=== PATIENT | female | born 1985 | race Caucasian/White ===

== ENCOUNTER 2018-03-05 21:52 | Emergency (ER) | payer SELFPAY ==
[2018-03-05 22:22] VITALS: BP 118/58; PULSE 73; RESP 20; TEMP 99.3; O2SAT 99
[2018-03-05 22:46] LABS: SQUAMOUS EPITHIAL 2 /hpf (0-5); URINE BILIRUBIN NEGATIVE (NEGATIVE); URINE BLOOD NEGATIVE (NEGATIVE); URINE CLARITY Clear (Clear); URINE COLOR Yellow (YELLOW); URINE GLUCOSE (UA) NORMAL (Normal); URINE LEUKOCYTE ESTERASE TRACE Leu/uL (Negative); URINE PROTEIN NEGATIVE (NEGATIVE); URINE UROBILINOGEN NORMAL mg/dL (0.2-1.0)
--- NOTE | 2018-03-05 22:58 | C.PDOC ---
Time Seen by Provider: 03/05/18 22:25 Chief Complaint (Nursing): Hip Pain Past Medical History Vital Signs: Last Vital Signs Temp 99.3 F 03/05/18 22:09 Pulse 73 03/05/18 22:09 Resp 20 03/05/18 22:09 BP 118/58 L 03/05/18 22:09 Pulse Ox 99 03/05/18 22:09 - Social History Hx Alcohol Use: No Hx Substance Use: No - Immunization History Hx Tetanus Toxoid Vaccination: No Hx Influenza Vaccination: No Hx Pneumococcal Vaccination: No ED Course And Treatment O2 Sat by Pulse Oximetry: 99 Disposition - Disposition
--- NOTE | 2018-03-05 23:01 | C.PDOC ---
History Of Present Illness 33 year old female complains of pelvic pain described as pressure and "stabbing labor" pains since yesterday. Today she reports having urinary frequency and urgency. She denies any fever, nausea, vomiting, flank pain, vaginal bleeding or discharge. LMP 01/28/18 Time Seen by Provider: 03/05/18 22:25 Chief Complaint (Nursing): Hip Pain History Per: Patient History/Exam Limitations: no limitations Onset/Duration Of Symptoms: Days Current Symptoms Are (Timing): Still Present Quality Of Discomfort: Pressure, Stabbing (Labor) Associated Symptoms: Urinary Symptoms (Frequency, Urgency). denies: Fever, Nausea, Vomiting, Back Pain (Flank) Alleviating Factors: None Recent travel outside of the [place]: No Abnormal Vaginal Bleeding: No Past Medical History Reviewed: Historical Data, Nursing Documentation, Vital Signs Vital Signs: Last Vital Signs Temp 99.3 F 03/05/18 22:09 Pulse 73 03/05/18 22:09 Resp 20 03/05/18 23:28 BP 118/58 L 03/05/18 22:09 Pulse Ox 99 03/05/18 23:16 Family History: States: Unknown Family Hx - Social History Hx Alcohol Use: No Hx Substance Use: No - Immunization History Hx Tetanus Toxoid Vaccination: No Hx Influenza Vaccination: No Hx Pneumococcal Vaccination: No Review Of Systems Constitutional: Negative for: Fever Gastrointestinal: Negative for: Nausea, Vomiting Genitourinary: Positive for: Frequency, Pelvic Pain, Other (Urgency). Negative for: Vaginal Discharge, Vaginal Bleeding Musculoskeletal: Negative for: Other (Flank pain) Physical Exam - Physical Exam Appears: Non-toxic Skin: Normal Color, Warm, Dry Head: Atraumatic, Normacephalic Eye(s): bilateral: Normal Inspection Oral Mucosa: Moist Neck: Normal, Supple Chest: Symmetrical, No Tenderness Cardiovascular: Rhythm Regular Respiratory: Normal Breath Sounds, No Rales, No Rhonchi, No Wheezing Gastrointestinal/Abdominal: Soft, Tenderness (Suprapubic), No Guarding, No Rebound Pelvic: Normal External Exam, Normal Speculum Exam, No Vaginal Bleeding, No Vaginal Discharge, No Cervical Motion Tenderness, No Cervix Open, No Enlarged Uterus Extremity: Bilateral: Atraumatic, Normal ROM Neurological/Psych: Oriented x3, Normal Speech ED Course And Treatment O2 Sat by Pulse Oximetry: 99 (Room air) Pulse Ox Interpretation: Normal Medical Decision Making Medical Decision Making: Impression: pelvic pain, urinary sx Plan: * UA * Tylenol * Pyridium Progress: POC test negative UA reviewed showing trace LE, no other abnormality. Pelvic exam performed, no CMT, no discharge. Will send urine culture and culture for GC. Patient remained well in no acute distress. Will discharge patient and contact with any positive results. Disposition Counseled Patient/Family Regarding: Studies Performed, Diagnosis, Need For Followup - Disposition [facility] Disposition: HOME/ ROUTINE Disposition Time: 23:09 Condition: GOOD Additional Instructions: Your urine results was negative Cultures were sent to lab and can take 2-3 days for results We will contact you if positive findings You can also call back at [phone] Take Tylenol or Advil for any pain Tus resultados de orina fueron negativos Las culturas fueron enviadas al laboratorio y pueden diane 2-3 gardner para obtener resultados Nos comunicaremos con usted si hay hallazgos positivos Tambin puede volver a llamar al [phone] [place] Tylenol o Advil por cualquier dolor Instructions: Acute Pelvic Pain (DC) Print Language: MALTESE - POA Present On Arrival: None - Clinical Impression Clinical Impression: Pelvic pain - PA / TEST GRADER / Resident Statement MD/DO has reviewed & agrees with the documentation as recorded. - Scribe Statement The provider has reviewed the documentation as recorded by the Scribe Richi Ford All medical record entries made by the Scribe were at my direction and personally dictated by me. I have reviewed the chart and agree that the record accurately reflects my personal performance of the history, physical exam, medical decision making, and the department course for this patient. I have also personally directed, reviewed, and agree with the discharge instructions and disposition.
== END 2018-03-05 23:28 | disposition home or self-care (01) ==
LOC: C.ER 21:52
DX: R10.2 Pelvic and perineal pain (principal)

== ENCOUNTER 2018-03-26 07:39 | Emergency (ER) | payer SELFPAY ==
[2018-03-26 07:48] VITALS: BP 108/73; PULSE 66; RESP 18; TEMP 97.6; O2SAT 98
[2018-03-26] MEDS ORDERED: Naproxen 550 mg Tab PO STA (07:56)
[2018-03-26] MEDS ORDERED: Naproxen 550 mg Tab PO ONE (08:04)
--- NOTE | 2018-03-26 08:21 | C.PDOC ---
History Of Present Illness 33-year-old female, presents to the emergency department with complaints of right neck pain radiating to right shoulder and arm for the past five days. Patient is taking Ibuprofen at home with no relief. Patient denies any trauma, nausea/vomiting, fever, chills, chest pain or shortness of breath. No other complaints at this time. Time Seen by Provider: 03/26/18 07:41 Chief Complaint (Nursing): Medical Clearance History Per: Patient History/Exam Limitations: no limitations Current Symptoms Are (Timing): Still Present Severity: Moderate Past Medical History Reviewed: Historical Data, Nursing Documentation, Vital Signs Vital Signs: Last Vital Signs Temp 97.6 F 03/26/18 07:44 Pulse 66 03/26/18 07:44 Resp 18 03/26/18 07:44 BP 108/73 03/26/18 07:44 Pulse Ox 98 03/26/18 08:22 Family History: States: No Known Family Hx - Social History Hx Alcohol Use: No Hx Substance Use: No - Immunization History Hx Tetanus Toxoid Vaccination: No Hx Influenza Vaccination: No Hx Pneumococcal Vaccination: No Review Of Systems Constitutional: Negative for: Fever, Chills Cardiovascular: Negative for: Chest Pain Respiratory: Negative for: Shortness of Breath Gastrointestinal: Negative for: Nausea, Vomiting Musculoskeletal: Positive for: Neck Pain, Shoulder Pain, Arm Pain Skin: Negative for: Rash Neurological: Negative for: Weakness, Numbness Physical Exam - Physical Exam Appears: Non-toxic, No Acute Distress Skin: Normal Color, Warm, Dry, No Rash Head: Atraumatic, Normacephalic Eye(s): bilateral: Normal Inspection, PERRL, EOMI Nose: Normal Oral Mucosa: Moist Lips: Normal Appearing Neck: Normal ROM Cardiovascular: Rhythm Regular, No Murmur Respiratory: Normal Breath Sounds, No Accessory Muscle Use Back: Other (tendernesss to trapezius and lateral aspect of posterior right shoulder) Extremity: Normal ROM, No Deformity, No Swelling Neurological/Psych: Oriented x3 ED Course And Treatment O2 Sat by Pulse Oximetry: 98 (RA) Pulse Ox Interpretation: Normal Progress Note: Patient treated with Naproxen, Flexeril and Prednisone. Disposition Counseled Patient/Family Regarding: Diagnosis, Need For Followup, Rx Given - Disposition Referrals: [facility] [Outside] Disposition: HOME/ ROUTINE Disposition Time: 08:30 Condition: STABLE Additional Instructions: FOLLOW UP WITH YOUR DOCTOR/CLINIC IN 1-2 DAYS USE MEDICATIONS DIRECTED RETURN TO EMERGENCY ROOM IF SYMPTOMS WORSEN SEGUIMIENTO CON SMITH MDICO / CLNICA EN 1-2 LEO USE MEDICAMENTOS SEGN LO INDICADO REGRESE AL LESLY DE EMERGENCIA SI LOS SNTOMAS EMPEORAN Prescriptions: Cyclobenzaprine [Flexeril] 10 mg PO BID PRN #15 tab PRN Reason: Muscle Spasm Naproxen 375 mg PO BID PRN #20 tablet PRN Reason: pain predniSONE [predniSONE Tab] 40 mg PO DAILY #6 tab Instructions: Radiculopathy (DC) Forms: [employer] (Montenegrin), Work Excuse Print Language: HUNGARIAN - Clinical Impression Clinical Impression: Cervical radiculopathy - Scribe Statement The provider has reviewed the documentation as recorded by the Scribe (Jada Campbell) All medical record entries made by the Scribe were at my direction and personally dictated by me. I have reviewed the chart and agree that the record accurately reflects my personal performance of the history, physical exam, medical decision making, and the department course for this patient. I have also personally directed, reviewed, and agree with the discharge instructions and disposition.
== END 2018-03-26 08:30 | disposition home or self-care (01) ==
LOC: C.ER 07:39
DX: M54.12 Radiculopathy, cervical region (principal)